=== PATIENT | male | born 1970 | race Caucasian/White ===

== ENCOUNTER 2018-01-18 11:51 | Emergency (ER) | payer OTHER, MEDICAID ==
[~2018-01-18] VITALS: Ht 190.5 cm; Wt 95.0 kg
[~2018-01-18 11:51] MED LIST: HYDR-3237 PO; LISI5TAB7 PO; MELO15TA24 PO; METF100010 PO; OMEP40CA6 PO
[2018-01-18 11:54] VITALS: BP 127/74
[2018-01-18] MEDS ORDERED: OXYcodone/APAP 5/325MG TABLET ONE (12:38)
[2018-01-18] MEDS ORDERED: CYCLOBENZAPRINE 10 MG TABLET ONE (12:38)
[2018-01-18] MEDS ORDERED: KETOROLAC 30 MG/1 ML ONE (12:38)
[2018-01-18] MEDS ORDERED: KETOROLAC 30 MG/1 ML IM ONE (13:00)
[2018-01-18] MEDS ORDERED: CYCLOBENZAPRINE 10 MG TABLET PO ONE (13:00)
[2018-01-18] MEDS ORDERED: OXYcodone/APAP 5/325MG TABLET PO ONE (13:00)
== END 2018-01-18 13:24 | disposition home or self-care (01) ==
LOC: ED 13:15
DX: M54.5 Low back pain (principal); E11.9 Type 2 diabetes mellitus without complications; Z87.891 Personal history of nicotine dependence
CPT/HCPCS: 96372; 99283; J1885